=== PATIENT | female | born 1990 | race Caucasian/White ===

== ENCOUNTER 2020-01-11 13:51 | Emergency (ER) | payer OTHER ==
[~2020-01-11] VITALS: Ht 162.6 cm; Wt 77.6 kg
[2020-01-11] MEDS ORDERED: PRENATAL CAPLE1 EAC1 (14:22)
== END 2020-01-11 20:32 | disposition home or self-care (01) ==
LOC: ER 13:51
DX: O26.892 Other specified pregnancy related conditions, second trimester (principal); R10.84 Generalized abdominal pain; Z34.01 Encounter for supervision of normal first pregnancy, first trimester

== ENCOUNTER 2020-05-16 04:46 | Inpatient (IN) | payer OTHER ==
[~2020-05-16] VITALS: Ht 162.6 cm; Wt 3.2 kg
[~2020-05-16 04:46] MED LIST: PRENATAL CAPLE1 EAC1
== END 2020-05-18 14:07 | disposition home or self-care (01) | DRG 788 ==
LOC: OB/GYN 04:46 → LDR 04:46 → O/R 10:08 → OB/GYN 14:35
PROVIDERS: ADMIT Specialist; ATTEND Specialist
PROC: 4A1HXCZ Monitoring of Products of Conception, Cardiac Rate, External Approach (ICD-10-PCS; 2020-05-16)
PROC: 10D00Z1 Extraction of Products of Conception, Low, Open Approach (ICD-10-PCS; principal; 2020-05-16 09:45)
DX: O32.2XX0 Maternal care for transverse and oblique lie, not applicable or unspecified (principal); O82 Encounter for cesarean delivery without indication; Z3A.37 37 weeks gestation of pregnancy; Z37.0 Single live birth; Z20.828 Contact with and (suspected) exposure to other viral communicable diseases